=== PATIENT | male | born 1960 | race Caucasian/White ===

== ENCOUNTER 2016-11-16 10:15 | Emergency (ER) | payer OTHER ==
[~2016-11-16 10:15] MED LIST: ACID REDUCER150 MG PO; AMITRIPTYLINE H25 MG PO; ATIVAN0.5 MG PO; CATAPRES0.1 MG PO; EFFEXOR XR150 MG PO; LISINOPRIL10 MG PO; LOPRESSOR50 MG PO; PRENATABS RX PO; SIMVASTATIN40 MG PO; ULTRAM EQIVALEN50 MG PO
--- NOTE | 2016-11-16 12:50 | ED ORDER SUMMARY ---
..... Patient: PRICILA AYERS OrderSheet [facility] VisitID: [id number] [place] [address] 56y, M Registration Date/Time: 11/16/2016 ORDER SHEET Weight: 102.0 kg (stated) Allergies: No Known Drug Allergy GENERAL ORDERS: Irrigate Wounds (11/16/2016 Joe Browning) (Cancelled: Duplicate Order11:30 Joe Browning) Wound Set-up: (11/16/2016 Joe Browning) (Cancelled: Duplicate Order11:30 Joe Browning) Wound Irrigation (11/16/2016 Joe Browning) (Cancelled: Duplicate Order11:29 Joe Browning) I&D Tray (11/16/2016 Joe Browning) (11:39 Florinda) MEDICATION ORDERS: Ziecslb-Lrgsqv-Sgixt Pertussis IM 0.5 mL (NOW, per protocol) (11/16/2016 Joe Browning) (Ack 11:51 DDean R.N.) (12:08 DDean R.N.) Lidocaine Injection Buffered 1% (place at bedside, with syringes & needles) (11/16/2016 Joe Browning) (Ack 11:51 DDean R.N.) (Cancelled: Other11:57 DDean R.N.) Keflex PO 500 mg (NOW) (12:11/16/2016 Joe Browning) (Ack 12:11 DDean R.N.) (12:20 DDean R.N.) Bactrim DS PO (Tablet 800-160 mg) 1 tab (NOW) (12:11/16/2016 Joe Browning) (Ack 12:11 DDean R.N.) (12:20 DDean R.N.) Percocet PO 5/325 mg (HIGH ALERT MEDICATION, NOW) (12:11/16/2016 Joe Browning) (Ack 12:11 DDean R.N.) (12:20 DDean R.N.) IV FLUIDS: ORDER SHEET NOTES: [Electronically signed by Marilyn Monteiro R.N. (14:42 11/16/2016)] [Electronically signed by Joe Francis Dr. (15:00 11/18/2016)] [Electronically locked/signed by Marilyn Monteiro R.N. (14:42 11/16/2016)]
--- NOTE | 2016-11-16 12:50 | ED CLINICAL REPORT ---
Clinical Report - Physicians/Mid Levels [facility] [address] [place] [address] 11/16/2016 10:16 Patient: PRICILA AYERS Time Seen: 1116. Arrived- By private vehicle. Historian- patient. HISTORY OF PRESENT ILLNESS Chief Complaint: BOIL. This started past several days and is still present and worsening. It was gradual in onset and has been constant but is not gone now. It is described as painful. It has been located on the right thigh. No cause has been identified. No recent medication, insect bite or food exposure. Was not recently exposed to poison eliel or poison oak. Similar symptoms previously: (a few). Recent medical care: Not recently seen/assessed. REVIEW OF SYSTEMS No fever or joint pain. All systems otherwise negative, except as recorded above. PAST HISTORY See nurses notes. Tetanus immunization status is unknown. Medications: Motrin 400mg taken at 2200 . Percocet Oral 5/325 mg, 4x a day as needed, last dose 0630. Ranitidine HCl Oral 150 mg, 2x a day. Simvastatin Oral 40 mg, daily. Amitriptyline HCl Oral 50 mg, at bedtime as needed. Lisinopril Oral 10 mg, daily. Metoprolol Succinate ER Oral 200 mg, 1/2 tablet twice a day. Allergies: No Known Drug Allergy. SOCIAL HISTORY Smoker- current status unknown. Occasional alcohol use. No drug use. No recent travel. Is a local resident. ADDITIONAL NOTES The nursing notes have been reviewed. PHYSICAL EXAM Vital Signs: 11/16/2016 10:20 BP: 140/95. HR: 114. RR: 20. O2 saturation: 97%. Temp: 98.7 F. Pain level now: 8/10. Blood pressure normal. Oxygen saturation normal. Appearance: Alert. Oriented X3. No acute distress. (non toxic). Eyes: Pupils equal, round and reactive to light. Conjunctivae and eyelids normal. ENT: Ears normal. Nose normal. Pharynx normal. CVS: Normal heart rate and rhythm. Heart sounds normal. Respiratory: No respiratory distress. Breath sounds normal. Chest nontender. Abdomen: Nontender. No organomegaly. Skin: Skin warm and dry. Normal skin color. No rash. Normal skin turgor. (except for abscess to the right anterior thigh. induration is 6 cm at largest diameter. fluctuanct center at area of reported prior I&D scar. cellulitis measuers 12 cm at area of greatest diameter. no crepitus. no denis abnormalities. no increased pain with ROM of the leg.). Extremities: Normal external inspection. Extremities nontender. PROGRESS AND PROCEDURES Incision & Drainage of Abscess: The abscess is located (Right thigh). The risks of the procedure, benefits and alternatives were explained. IV established. O2 administered. Placed on pulse oximeter and design engineering intern. Anesthesia provided using 1% lidocaine with epi. Skin cleansed with Betadine. The abscess was incised with a #11 surgical blade. A moderate amount of pus was drained. Cavity was packed with gauze. A dressing was applied. Estimated blood loss: 5 mL. ( loculations broken up with curved forceps. patient tolerated procedure well. no complications.). Course of Care: the patient is a pleasant 56-year-old male with past medical history significant for abscess and MRSA infection presenting for abscess to the thigh. Patient has an area of cellulitis as well. No crepitus. No signs of deeper infection. No systemic involvement. No signs of sepsis. Do not feel imaging or laboratory studies are warranted at this time. Patient appears nontoxic and is in no acute distress. Informed verbal consent obtained for abscess incision and drainage. Patient is agreeable to the treatment plan. patient's workup was remarkable for a significant amount of purulent material drained from the wound. It was packed. No competition's. Please see procedure note for further details. Patient reported improvement with her symptoms after the incision and drainage. Patient continues to be nontoxic and in no acute distress. Did not fill patient is being admitted or require further emergency department workup/evaluation. Patient is a good outpatient candidate. First also in the proximal provided here as well as prescription for outpatientantibiotic treatment. Discussed the patient workup here in the emergency department home care, follow-up, and return precautions. All questions have been answered. The patient expressed understanding of these instructions and was agreeable to them. Disposition: Discharged. Condition: good. CLINICAL IMPRESSION 11/16/2016 10:20 BP: 140/95. HR: 114. RR: 20. O2 saturation: 97%. Temp: 98.7 F. Pain level now: 8/10. Hypertensive. Oxygen saturation normal. Essential hypertension. Cellulitis (acute right anterior thigh). Single deep abscess with incision and drainage (right anterior thigh). INSTRUCTIONS Warnings: GENERAL WARNINGS: Return or contact your physician immediately if your condition worsens or changes unexpectedly, if not improving as expected, or if other problems arise. Specifically return if pain, vomiting, bleeding, breathing difficulty or fever. Your Current Medications: CONTINUE TAKING THE FOLLOWING MEDICATIONS: Amitriptyline HCl Oral : 50 mg at bedtime, prn. Lisinopril Oral : 10 mg daily. Metoprolol Succinate ER Oral : 200 mg 1/2 tablet twice a day. Motrin 400mg taken at 2200 *. Percocet Oral : 5/325 mg 4x a day, Last: 0630, prn. Ranitidine HCl Oral : 150 mg 2x a day. Simvastatin Oral : 40 mg daily. Prescription Medications: Bactrim DS 800 mg / 160 mg: take 1 tablet orally every 12 hours for 10 days. No refill. Substitution is permissible. (disp 20 tabs) Keflex 500 mg: take 1 capsule orally every 8 hours for 10 days. No refill. Substitution is permissible. (Disp 30 caps) Percocet 5 mg/325 mg: take 1 tablet orally every 6 hours as needed for pain. Dispense twelve (12). No refill. Substitution is permissible. Follow-up: Return to the emergency department as needed. Follow up with your doctor. Reason for referral: recheck wound in 24 - 48 hours. Summary of care provided to patient via paper. Screening today revealed the patient's blood pressure to be in the normal range. The patient should follow up with a primary care provider for blood pressure management. Understanding of the discharge instructions verbalized by patient. (Electronically signed by Joe Francis Dr. 11/18/2016 15:00)
--- NOTE | 2016-11-16 12:50 | ED NURSING NOTES ---
Clinical Report - Nurses [facility] [address] [place] [address] 11/16/2016 10:16 Patient: PRICILA AYERS TRIAGE Triage time 1020. Acuity: LEVEL 3. Chief Complaint: BOIL and TENDER AREA. --10:32 Marilyn Monteiro R.N. 10:20 11/16/16. BP: 140/95. HR: 114. RR: 20. O2 saturation: 97% on room air. Temp: 98.7 F. Pain level now: 03/26. --10:32 Marilyn Monteiro R.N. Weight: 102 kg stated. Height/Length: 72 inches Per Patient. BMI: 30.5. --10:27 Marilyn Monteiro R.N. Medications Amitriptyline HCl Oral 50 mg, at bedtime as needed. Lisinopril Oral 10 mg, daily. Metoprolol Succinate ER Oral 200 mg, 1/2 tablet twice a day. --10:29 Marilyn Monteiro R.N. Ranitidine HCl Oral 150 mg, 2x a day. Simvastatin Oral 40 mg, daily. --10:29 Marilyn Monteiro R.N. Percocet Oral 5/325 mg, 4x a day as needed, last dose 0630. --10:29 Marilyn Monteiro R.N. Motrin 400mg taken at 2200 . --10:30 Marilyn Monteiro R.N. Allergies No Known Drug Allergy. --10:29 Marilyn Monteiro R.N. History Arrived by private vehicle. Historian: patient. Accompanied by (pt states he was dropped off). Primary physician (alex). Reported as (right thigh). Onset. (4 days). SOCIAL HX: Heavy tobacco smoker (cigarette)- less than 1 pack per day. Occasional alcohol use. No drug use. --10:32 Marilyn Monteiro R.N. PROBLEMS: Chronic back pain . Abcess. Hyperlipidemia. Hypertension. Abdominal Pain. Peptic Ulcer Disease. Hernia. Bowel Obstruction. Gastritis. Hypokalemia. Alcohol Withdrawal. Pancreatitis. --10:31 Marilyn Monteiro R.N. ADDITIONAL SURGERIES: Ankle surgery. Endoscopy. Knee Surgery. --10:31 Marilyn Monteiro R.N. Interventions ID band on patient. To treatment room. --10:32 Marilyn Monteiro R.N. PHYSICAL ASSESSMENT 10:20. Ambulatory to room. Patient gowned. GENERAL / NEURO / PSYCH: Alert. Appears in pain. Oriented X 4. HEENT: Mucous membranes are pink. RESPIRATORY: Respirations not labored. CVS: Capillary refill less than 2 seconds. SKIN: Skin tenderness present. Swelling present. Increased warmth present. Erythema present. --10:33 Marilyn Monteiro R.N. NURSING PROGRESS NOTES 10:20. Patient gowned. Head of bed elevated. Reassurance given. Patient identifiers checked. Call light placed in reach. Side rails up. Bed placed in lowest position. Patient ready for evaluation- chart flagged. --10:33 Marilyn Monteiro R.N. 10:25. ( pt ambulated to bathroom, UA obtained and sent to lab). --10:34 Marilyn Monteiro R.N. 11:50 11/16/2016 EIUHIPG-VKMWRI-VRZON PERTUSSIS IM 0.5 mL given. (Lot#: [id number] , expiration date: 05/24/2018, Laundry [employer] Counter Clerk: [employer]). Given in the left deltoid. Vaccine information statement provided to the patient. --12:08 Marilyn Monteiro R.N. 11:30. ( Pt resting quietly, watching t.v. in no acute distress.). --12:12 Marilyn Monteiro R.N. 12:15 11/16/2016 Keflex (Cephalexin) PO Capsules 500 mg given. --12:20 Marilyn Monteiro R.N. 12:15 11/16/2016 Bactrim DS (Sulfamethoxazole-TMP DS) PO Tablets 1 tab given. Allergies verified and confirmed 5 rights. --12:20 Marilyn Monteiro R.N. 12:15 11/16/2016 Percocet (Oxycodone-Acetaminophen) PO 5/325 mg Tablets 1 tab given. Allergies verified, confirmed 5 rights and sedative warning given to the patient. --12:20 Marilyn Monteiro R.N. 12:25. I & D: Incision and Drainage of abscess performed by ED physician. The abscess is located on the right thigh. Preparation: Incision and Drainage tray set up with 1% lidocaine. Procedure: skin cleansed with Betadine; a moderate amount of pus was drained. Cavity was irrigated with saline and packed with gauze. Post-procedure: he was stable, no complications, bleeding controlled and dressing intact. Total time of assist / procedure: 15 minutes. --14:38 Marilyn Monteiro R.N. 12:50. Applied clean bulky dressing consisting of 4x4 gauze. Secured with tape and amada (done by surgical tech). --14:39 Marilyn Monteiro R.N. 12:55. ( Pt standing by door, fully dressed, asking to go home.). --14:40 Marilyn Monteiro R.N. DISPOSITION / DISCHARGE 12:55. Condition at departure: improved and stable. No learning barriers present. Discharge instructions provided and reviewed with the patient. Reviewed medication(s) (bactrim, keflex, percocet, motrin). Patient verbalized understanding. Written instructions provided in Italian. The patient was discharged home and accompanied by mortician supplies sales representative. He left the Emergency Department ambulatory and via private vehicle. Pillar Worker driving. --14:41 Marilny Monteiro R.N. 12:55 11/16/16. BP: 138/83. HR: 110. RR: 18. O2 saturation: 96% on room air. Temp: deferred. Pain level now: 03/26. --14:41 Marilyn Monteiro R.N. Locked/Released at 11/16/2016 14:42 by Marilyn Monteiro R.N.
--- NOTE | 2016-11-16 12:50 | ED ORDER SUMMARY ---
..... Patient: PRICILA AYERS OrderSheet [facility] VisitID: [id number] [place] [address] 56y, M Registration Date/Time: 11/16/2016 ORDER SHEET Weight: 102.0 kg (stated) Allergies: No Known Drug Allergy GENERAL ORDERS: Irrigate Wounds (11/16/2016 Joe Browning) (Cancelled: Duplicate Order11:30 Joe Browning) Wound Set-up: (11/16/2016 Joe Browning) (Cancelled: Duplicate Order11:30 Joe Browning) Wound Irrigation (11/16/2016 Joe Browning) (Cancelled: Duplicate Order11:29 Joe Browning) I&D Tray (11/16/2016 Joe Browning) (11:39 Florinda) MEDICATION ORDERS: Rgqewqg-Duvnmz-Jnlpe Pertussis IM 0.5 mL (NOW, per protocol) (11/16/2016 Joe Browning) (Ack 11:51 DDean R.N.) (12:08 DDean R.N.) Lidocaine Injection Buffered 1% (place at bedside, with syringes & needles) (11/16/2016 Joe Browning) (Ack 11:51 DDean R.N.) (Cancelled: Other11:57 DDean R.N.) Keflex PO 500 mg (NOW) (12:11/16/2016 Joe Browning) (Ack 12:11 DDean R.N.) (12:20 DDean R.N.) Bactrim DS PO (Tablet 800-160 mg) 1 tab (NOW) (12:11/16/2016 Joe Browning) (Ack 12:11 DDean R.N.) (12:20 DDean R.N.) Percocet PO 5/325 mg (HIGH ALERT MEDICATION, NOW) (12:11/16/2016 Joe Browning) (Ack 12:11 DDean R.N.) (12:20 DDean R.N.) IV FLUIDS: ORDER SHEET NOTES: [Electronically signed by Marilyn Monteiro R.N. (14:42 11/16/2016)] [Electronically signed by Joe Francis Dr. (15:00 11/18/2016)] [Electronically locked/signed by Marilyn Monteiro R.N. (14:42 11/16/2016)]
--- NOTE | 2016-11-16 12:50 | ED NURSING NOTES ---
Clinical Report - Nurses [facility] [address] [place] [address] 11/16/2016 10:16 Patient: PRICILA AYERS TRIAGE Triage time 1020. Acuity: LEVEL 3. Chief Complaint: BOIL and TENDER AREA. --10:32 Marilyn Monteiro R.N. 10:20 11/16/16. BP: 140/95. HR: 114. RR: 20. O2 saturation: 97% on room air. Temp: 98.7 F. Pain level now: 03/26. --10:32 Marilyn Monteiro R.N. Weight: 102 kg stated. Height/Length: 72 inches Per Patient. BMI: 30.5. --10:27 Marilyn Monteiro R.N. Medications Amitriptyline HCl Oral 50 mg, at bedtime as needed. Lisinopril Oral 10 mg, daily. Metoprolol Succinate ER Oral 200 mg, 1/2 tablet twice a day. --10:29 Marilyn Monteiro R.N. Ranitidine HCl Oral 150 mg, 2x a day. Simvastatin Oral 40 mg, daily. --10:29 Marilyn Monteiro R.N. Percocet Oral 5/325 mg, 4x a day as needed, last dose 0630. --10:29 Marilyn Monteiro R.N. Motrin 400mg taken at 2200 . --10:30 Marilyn Monteiro R.N. Allergies No Known Drug Allergy. --10:29 Marilyn Monteiro R.N. History Arrived by private vehicle. Historian: patient. Accompanied by (pt states he was dropped off). Primary physician (alex). Reported as (right thigh). Onset. (4 days). SOCIAL HX: Heavy tobacco smoker (cigarette)- less than 1 pack per day. Occasional alcohol use. No drug use. --10:32 Marilyn Monteiro R.N. PROBLEMS: Chronic back pain . Abcess. Hyperlipidemia. Hypertension. Abdominal Pain. Peptic Ulcer Disease. Hernia. Bowel Obstruction. Gastritis. Hypokalemia. Alcohol Withdrawal. Pancreatitis. --10:31 Marilyn Monteiro R.N. ADDITIONAL SURGERIES: Ankle surgery. Endoscopy. Knee Surgery. --10:31 Marilyn Monteiro R.N. Interventions ID band on patient. To treatment room. --10:32 Marilyn Monteiro R.N. PHYSICAL ASSESSMENT 10:20. Ambulatory to room. Patient gowned. GENERAL / NEURO / PSYCH: Alert. Appears in pain. Oriented X 4. HEENT: Mucous membranes are pink. RESPIRATORY: Respirations not labored. CVS: Capillary refill less than 2 seconds. SKIN: Skin tenderness present. Swelling present. Increased warmth present. Erythema present. --10:33 Marilyn Monteiro R.N. NURSING PROGRESS NOTES 10:20. Patient gowned. Head of bed elevated. Reassurance given. Patient identifiers checked. Call light placed in reach. Side rails up. Bed placed in lowest position. Patient ready for evaluation- chart flagged. --10:33 Marilyn Monteiro R.N. 10:25. ( pt ambulated to bathroom, UA obtained and sent to lab). --10:34 Marilyn Monteiro R.N. 11:50 11/16/2016 PFMXZLH-ZHXPDZ-WFJVV PERTUSSIS IM 0.5 mL given. (Lot#: [id number] , expiration date: 05/24/2018, Scientific Database Curator: [employer]). Given in the left deltoid. Vaccine information statement provided to the patient. --12:08 Marilyn Monteiro R.N. 11:30. ( Pt resting quietly, watching t.v. in no acute distress.). --12:12 Marilyn Monteiro R.N. 12:15 11/16/2016 Keflex (Cephalexin) PO Capsules 500 mg given. --12:20 Marilyn Monteiro R.N. 12:15 11/16/2016 Bactrim DS (Sulfamethoxazole-TMP DS) PO Tablets 1 tab given. Allergies verified and confirmed 5 rights. --12:20 Marilyn Monteiro R.N. 12:15 11/16/2016 Percocet (Oxycodone-Acetaminophen) PO 5/325 mg Tablets 1 tab given. Allergies verified, confirmed 5 rights and sedative warning given to the patient. --12:20 Marilyn Monteiro R.N. 12:25. I & D: Incision and Drainage of abscess performed by ED physician. The abscess is located on the right thigh. Preparation: Incision and Drainage tray set up with 1% lidocaine. Procedure: skin cleansed with Betadine; a moderate amount of pus was drained. Cavity was irrigated with saline and packed with gauze. Post-procedure: he was stable, no complications, bleeding controlled and dressing intact. Total time of assist / procedure: 15 minutes. --14:38 Marilyn Monteiro R.N. 12:50. Applied clean bulky dressing consisting of 4x4 gauze. Secured with tape and amada (done by orthophotography technician). --14:39 Marilyn Monteiro R.N. 12:55. ( Pt standing by door, fully dressed, asking to go home.). --14:40 Marilyn Monteiro R.N. DISPOSITION / DISCHARGE 12:55. Condition at departure: improved and stable. No learning barriers present. Discharge instructions provided and reviewed with the patient. Reviewed medication(s) (bactrim, keflex, percocet, motrin). Patient verbalized understanding. Written instructions provided in Swazi. The patient was discharged home and accompanied by packing checker. He left the Emergency Department ambulatory and via private vehicle. Restaurant Mgr driving. --14:41 Marilyn Monteiro R.N. 12:55 11/16/16. BP: 138/83. HR: 110. RR: 18. O2 saturation: 96% on room air. Temp: deferred. Pain level now: 03/26. --14:41 Marilyn Monteiro R.N. Locked/Released at 11/16/2016 14:42 by Marilyn Monteiro R.N.
--- NOTE | 2016-11-18 15:00 | ED MAR SUMMARY ---
..... Medication Administration Record [facility] [address] [place] [place] [address] Patient: PRICILA AYERS Visit ID: [id number] 56y, M Weight: 102.0 kg Height/Length: 72 in BMI: 30.5 ALLERGIES: No Known Drug Allergy Given 11:50 11/16/2016 Marilyn Monteiro R.N. Medication Administered: SUVNHWJ-NSANGF-LMZVX PERTUSSIS [IM], Dose: 0.5 mL IM. Medication Ordered: Ffklagl-Ykdppg-Iiwga Pertussis IM 0.5 mL (NOW, per protocol). Given 12:15 11/16/2016 Mrailyn Monteiro R.N. Medication Administered: KEFLEX [PO] (CEPHALEXIN), Dose: 500 mg Capsules PO. Medication Ordered: Keflex PO 500 mg (NOW). Given 12:11/16/2016 Marilyn Monteiro R.N. Medication Administered: BACTRIM DS [PO] (SULFAMETHOXAZOLE-TMP DS), Dose: 1 tab Tablets PO. Medication Ordered: Bactrim DS PO (Tablet 800-160 mg) 1 tab (NOW). Given 12:15 11/16/2016 Marilyn Monteiro R.N. Medication Administered: PERCOCET [PO] (OXYCODONE-ACETAMINOPHEN), Dose: 1 tab 5/325 mg Tablets PO. Medication Ordered: Percocet PO 5/325 mg (HIGH ALERT MEDICATION, NOW).
--- NOTE | 2016-11-18 15:00 | ED MED RECONCILIATION SUMMARY ---
Patient: PRICILA AYERS Medication Reconciliation Report [facility] VisitID: [id number] [place] [address] 56y, M Registration Date/Time: 11/16/2016 Weight: 102.0 kg Height/Length: 72 in. BMI: 30.5 ALLERGIES: No Known Drug Allergy The patient's Home Medications are listed below: CONTINUE TAKING THE FOLLOWING MEDICATIONS: Amitriptyline HCl Oral 50 mg, at bedtime Lisinopril Oral 10 mg, daily Metoprolol Succinate ER Oral 200 mg, 1/2 tablet twice a day Motrin 400mg taken at 2200 Percocet Oral 5/325 mg, 4x a day, last dose: 629 Ranitidine HCl Oral 150 mg, 2x a day Simvastatin Oral 40 mg, daily The source(s) of the original Home Medication information: Not obtained. The following Medications were given to the patient in the Emergency Department: [id number]-[id number]-[id number] PERTUSSIS [IM] IM 0.5 mL, administered: 11/16/2016 11:50:00 AM Keflex [PO] PO 500 mg, administered: 11/16/2016 12:15:00 PM Bactrim DS [PO] PO 1 tab, administered: 11/16/2016 12:15:00 PM Percocet [PO] PO 1 tab, administered: 11/16/2016 12:15:00 PM The following Medications were prescribed to the patient: Bactrim DS 800 mg / 160 mg: take 1 tablet orally every 12 hours for 10 days. No refill. Substitution is permissible.(disp 20 tabs) -- Joe Francis Dr. Keflex 500 mg: take 1 capsule orally every 8 hours for 10 days. No refill. Substitution is permissible.(Disp 30 caps) -- Joe Francis Dr. Percocet 5 mg/325 mg: take 1 tablet orally every 6 hours as needed for pain. Dispense twelve (12). No refill. Substitution is permissible. -- Joe Francis Dr.
--- NOTE | 2016-11-18 15:00 | ED DISCHARGE INSTRUCTIONS ---
Patient: PRICILA AYERS General Instructions [facility] VisitID: [id number] [place] [address] 56y, M Registration Date/Time: 11/16/2016 11/16/2016 10:20 BP: 140/95. HR: 114. RR: 20. O2 saturation: 97%. Temp: 98.7 F. Pain level now: 8/10. Hypertensive. Oxygen saturation normal. Essential hypertension. Cellulitis (acute right anterior thigh). Single deep abscess with incision and drainage (right anterior thigh). INSTRUCTIONS Warnings: GENERAL WARNINGS: Return or contact your physician immediately if your condition worsens or changes unexpectedly, if not improving as expected, or if other problems arise. Specifically return if pain, vomiting, bleeding, breathing difficulty or fever. Your Current Medications: CONTINUE TAKING THE FOLLOWING MEDICATIONS: Amitriptyline HCl Oral : 50 mg at bedtime, prn. Lisinopril Oral : 10 mg daily. Metoprolol Succinate ER Oral : 200 mg 1/2 tablet twice a day. Motrin 400mg taken at 2200 *. Percocet Oral : 5/325 mg 4x a day, Last: 0630, prn. Ranitidine HCl Oral : 150 mg 2x a day. Simvastatin Oral : 40 mg daily. Prescription Medications: Bactrim DS 800 mg / 160 mg: take 1 tablet orally every 12 hours for 10 days. No refill. Substitution is permissible. (disp 20 tabs) Keflex 500 mg: take 1 capsule orally every 8 hours for 10 days. No refill. Substitution is permissible. (Disp 30 caps) Percocet 5 mg/325 mg: take 1 tablet orally every 6 hours as needed for pain. Dispense twelve (12). No refill. Substitution is permissible. Follow-up: Return to the emergency department as needed. Follow up with your doctor. Reason for referral: recheck wound in 24 - 48 hours. Summary of care provided to patient via paper. Screening today revealed the patient's blood pressure to be in the normal range. The patient should follow up with a primary care provider for blood pressure management. Understanding of the discharge instructions verbalized by patient. ADDITIONAL INFORMATION Cellulitis You have an infection of the skin known as cellulitis. This usually starts with a scrape, cut, insect bite, blister or other opening in the skin which becomes infected. This is a serious condition. It must be watched closely to be sure the infection is not spreading. With antibiotic treatment, the size of the red area will gradually shrink in size until the skin returns to normal. This will take 7-10 days. The red area should never increase in size once the antibiotic medicine has been started. Occasionally, an infection will be resistant to one antibiotic and another one will have to be used. Home Care: 1) Limit the use of the affected part, since excess movement can cause the infection to spread. 2) If the infection is on your leg, walk as little as possible during the first few days of the treatment. Keep your leg elevated while sitting. This will reduce swelling. 3) Take all of the antibiotic medicine exactly as directed until it is gone. Be careful not to miss any doses, especially during the first seven days. Follow Up with your doctor or this facility as directed. Check the infected area daily for the warning signs listed below. Get Prompt Medical Attention if any of the following occur: -- Spreading area of redness -- Increasing swelling or pain -- Appearance of pus or drainage -- Fever over 100.4 F (38.0 C) oral, or over 101.4 F (38.6 C) rectal, after two days on antibiotics Abscess [Incision & Drainage] An abscess (sometimes called a boil) occurs when bacteria get trapped under the skin and begin to grow. Pus forms inside the abscess as the body responds to the bacteria. An abscess can occur with an insect bite, ingrown hair, blocked oil gland, pimple, cyst, or puncture wound. Treatment of your abscess has required an incision to drain the pus. If the abscess pocket was large, a gauze packing may have been inserted. This will need to be removed and possibly replaced on your next visit. Antibiotics are not required in the treatment of a simple abscess, unless the infection is spreading into the skin around the wound (known as cellulitis). Healing of the wound will take about one to two weeks depending on the size of the abscess. Healthy tissue will grow from the bottom and sides of the opening until it seals over. Home Care: The wound may drain for the first two days. Cover the wound with a clean dry dressing. If the dressing becomes soaked with blood or pus, change it. If a gauze packing was placed inside the abscess cavity, you may be advised to remove it yourself. You may do this in the shower. Once the packing is removed, you should wash the area in the shower or bath 3 to 4 times a day, until the skin opening has closed. If you were prescribed antibiotics, take them as directed until they are all gone. You may use acetaminophen (Tylenol) or ibuprofen (Motrin, Advil) to control pain, unless another pain medicine was prescribed. [ NOTE: If you have liver disease or ever had a stomach ulcer, talk with your doctor before using these medicines.] Follow Up with your doctor as advised by our staff. If a gauze packing was inserted in your wound, it should be removed in 1-2 days. Check your wound every day for the signs of worsening infection listed below. Get Prompt Medical Attention if any of the following occur: Increasing redness or swelling Red streaks in the skin leading away from the wound Increasing local pain or swelling Continued pus draining from the wound two days after treatment Fever of 100.4F (38C) or higher, or as directed by your healthcare provider High Blood Pressure --Established High Blood Pressure (Hypertension) is a chronic disease. The cause is unknown in most cases. It can usually be controlled with lifestyle changes and/or medicines. Symptoms of high blood pressure may include headache, dizziness, visual changes, chest pain and shortness of breath. Sometimes it causes no symptoms at all. However, even if there are no symptoms, untreated high blood pressure increases the risk of heart attack, also known as acute myocardial infarction, or AMI, and stroke. It is a serious health risk and should not be ignored. A normal blood pressure is 120/80 or less. The first (top) number is the "systolic" pressure. The second (bottom) number is the "diastolic" pressure. Hypertension exists when either the top number is 140 or higher, OR the bottom number is 90 or higher on repeated measurements. Home Care: All patients with high blood pressure should do the following to lower their pressure. If you are on medicines, then these methods may reduce or eliminate your need for medicines in the future. Begin a weight loss program if you are overweight. Reduce your salt intake. Avoid high salt foods (olives, pickles, smoked meats, salted potato chips, etc.). Do not add salt to your food at the table. Use only small amounts of salt when cooking. Begin an exercise program. Discuss with your doctor what type of exercise program would be best for you. It doesn't have to be difficult. Even brisk walking for 20 minutes three times a week is a good form of exercise. Avoid medicines which contain heart stimulants. This includes many cold and sinus decongestant pills and sprays as well as diet pills. Check the warnings about hypertension on the label. Stimulants such as amphetamine or cocaine could be lethal for someone with hypertension. Never take these. Limit your caffeine intake or switch to caffeine-free products. Stop smoking. If you are a long-time smoker, this can be hard. Enroll in a stop-smoking program to improve your chance of success. Learning how to handle stress better is an important part of any program to lower blood pressure. Learn about relaxation methods such as meditation, yoga or biofeedback. If medicines were prescribed, take them exactly as directed. Missing doses may cause your blood pressure get out of control. Consider buying an automatic blood pressure machine (available at most pharmacies). Use this to monitor your blood pressure at home and report the results to your doctor. Follow Up: Regular visits to your own physician for blood pressure checks and medicine adjustment is an important part of your care. Make a follow-up appointment as directed by our staff. Get Prompt Medical Attention if any of the following occur: Chest pain or shortness of breath Severe headache Throbbing or rushing sound in the ears Nosebleed Sudden severe abdominal pain Extreme drowsiness, confusion or fainting Dizziness or vertigo (dizziness with spinning sensation) Weakness of an arm or leg or one side of the face Difficulty with speech or vision Sulfamethoxazole, Trimethoprim Oral tablet What is this medicine? SULFAMETHOXAZOLE; TRIMETHOPRIM or SMX-TMP (suhl fuh meth OK belgica zohl; trye METH oh prim) is a combination of a sulfonamide antibiotic and a second antibiotic, trimethoprim. It is used to treat or prevent certain kinds of bacterial infections. It will not work for colds, flu, or other viral infections. How should I use this medicine? Take this medicine by mouth with a full glass of water. Follow the directions on the prescription label. Take your medicine at regular intervals. Do not take it more often than directed. Do not skip doses or stop your medicine early. Talk to your solid waste management engineer regarding the use of this medicine in children. Special care may be needed. This medicine has been used in children as young as 2 months of age. What side effects may I notice from receiving this medicine? Side effects that you should report to your doctor or health health care law specialist as soon as possible: allergic reactions like skin rash or hives, swelling of the face, lips, or tongue breathing problems fever or chills, sore throat irregular heartbeat, chest pain joint or muscle pain pain or difficulty passing urine red pinpoint spots on skin redness, blistering, peeling or loosening of the skin, including inside the mouth unusual bleeding or bruising unusually weak or tired yellowing of the eyes or skin Side effects that usually do not require medical attention (report to your doctor or health health care law specialist if they continue or are bothersome): diarrhea dizziness headache loss of appetite nausea, vomiting nervousness What may interact with this medicine? Do not take this medicine with any of the following medications: aminobenzoate potassium dofetilide metronidazole This medicine may also interact with the following medications: ROBBIE inhibitors like benazepril, enalapril, lisinopril, and ramipril cyclosporine digoxin diuretics indomethacin medicines for diabetes methenamine methotrexate phenytoin potassium supplements pyrimethamine sulfinpyrazone tricyclic antidepressants warfarin What if I miss a dose? If you miss a dose, take it as soon as you can. If it is almost time for your next dose, take only that dose. Do not take double or extra doses. Where should I keep my medicine? Keep out of the reach of children. Store at room temperature between 20 to 25 degrees C (68 to 77 degrees F). Protect from light. Throw away any unused medicine after the expiration date. What should I tell my health care provider before I take this medicine? They need to know if you have any of these conditions: anemia asthma being treated with anticonvulsants if you frequently drink alcohol containing drinks kidney disease liver disease low level of folic acid or [id number] dehydrogenase poor nutrition or malabsorption porphyria severe allergies thyroid disorder an unusual or allergic reaction to sulfamethoxazole, trimethoprim, sulfa drugs, other medicines, foods, dyes, or preservatives or trying to get breast-feeding What should I watch for while using this medicine? Tell your doctor or health health care law specialist if your symptoms do not improve. Drink several glasses of water a day to reduce the risk of kidney problems. Do not treat diarrhea with over the counter products. Contact your doctor if you have diarrhea that lasts more than 2 days or if it is severe and watery. This medicine can make you more sensitive to the sun. Keep out of the sun. If you cannot avoid being in the sun, wear protective clothing and use a sunscreen. Do not use sun lamps or tanning beds/booths. Cephalexin Monohydrate Oral tablet What is this medicine? CEPHALEXIN (sef a LANCE in) is a cephalosporin antibiotic. It is used to treat certain kinds of bacterial infections It will not work for colds, flu, or other viral infections. How should I use this medicine? Take this medicine by mouth with a full glass of water. Follow the directions on the prescription label. This medicine can be taken with or without food. Take your medicine at regular intervals. Do not take your medicine more often than directed. Take all of your medicine as directed even if you think you are better. Do not skip doses or stop your medicine early. Talk to your solid waste management engineer regarding the use of this medicine in children. While this drug may be prescribed for selected conditions, precautions do apply. What side effects may I notice from receiving this medicine? Side effects that you should report to your doctor or health health care law specialist as soon as possible: allergic reactions like skin rash, itching or hives, swelling of the face, lips, or tongue breathing problems pain or trouble passing urine redness, blistering, peeling or loosening of the skin, including inside the mouth severe or watery diarrhea unusually weak or tired yellowing of the eyes, skin Side effects that usually do not require medical attention (report to your doctor or health health care law specialist if they continue or are bothersome): gas or heartburn genital or anal irritation headache joint or muscle pain nausea, vomiting What may interact with this medicine? probenecid some other antibiotics What if I miss a dose? If you miss a dose, take it as soon as you can. If it is almost time for your next dose, take only that dose. Do not take double or extra doses. There should be at least 4 to 6 hours between doses. Where should I keep my medicine? Keep out of the reach of children. Store at room temperature between 59 and 86 degrees F (15 and 30 degrees C). Throw away any unused medicine after the expiration date. What should I tell my health care provider before I take this medicine? They need to know if you have any of these conditions: kidney disease stomach or intestine problems, especially colitis an unusual or allergic reaction to cephalexin, other cephalosporins, penicillins, other antibiotics, medicines, foods, dyes or preservatives or trying to get breast-feeding What should I watch for while using this medicine? Tell your doctor or health health care law specialist if your symptoms do not begin to improve in a few days. Do not treat diarrhea with over the counter products. Contact your doctor if you have diarrhea that lasts more than 2 days or if it is severe and watery. If you have diabetes, you may get a false-positive result for sugar in your urine. Check with your doctor or health health care law specialist. Oxycodone Hydrochloride, Acetaminophen Oral tablet What is this medicine? ACETAMINOPHEN; OXYCODONE (a set a ROWDY yen fen; ox i KOE done) is a pain reliever. It is used to treat mild to moderate pain. How should I use this medicine? Take this medicine by mouth with a full glass of water. Follow the directions on the prescription label. Take your medicine at regular intervals. Do not take your medicine more often than directed. Talk to your solid waste management engineer regarding the use of this medicine in children. Special care may be needed. Patients over 65 years old may have a stronger reaction and need a smaller dose. What side effects may I notice from receiving this medicine? Side effects that you should report to your doctor or health health care law specialist as soon as possible: allergic reactions like skin rash, itching or hives, swelling of the face, lips, or tongue breathing difficulties, wheezing confusion light headedness or fainting spells severe stomach pain yellowing of the skin or the whites of the eyes Side effects that usually do not require medical attention (report to your doctor or health health care law specialist if they continue or are bothersome): dizziness drowsiness nausea vomiting What may interact with this medicine? alcohol antihistamines barbiturates like amobarbital, butalbital, butabarbital, methohexital, pentobarbital, phenobarbital, thiopental, and secobarbital benztropine drugs for bladder problems like solifenacin, trospium, oxybutynin, tolterodine, hyoscyamine, and methscopolamine drugs for breathing problems like ipratropium and tiotropium drugs for certain stomach or intestine problems like propantheline, homatropine methylbromide, glycopyrrolate, atropine, belladonna, and dicyclomine general anesthetics like etomidate, ketamine, nitrous oxide, propofol, desflurane, enflurane, halothane, isoflurane, and sevoflurane medicines for depression, anxiety, or psychotic disturbances medicines for sleep muscle relaxants naltrexone narcotic medicines (opiates) for pain phenothiazines like perphenazine, thioridazine, chlorpromazine, mesoridazine, fluphenazine, prochlorperazine, promazine, and trifluoperazine scopolamine tramadol trihexyphenidyl What if I miss a dose? If you miss a dose, take it as soon as you can. If it is almost time for your next dose, take only that dose. Do not take double or extra doses. Where should I keep my medicine? Keep out of the reach of children. This medicine can be abused. Keep your medicine in a safe place to protect it from theft. Do not share this medicine with anyone. Selling or giving away this medicine is dangerous and against the law. Store at room temperature between 20 and 25 degrees C (68 and 77 degrees F). Keep container tightly closed. Protect from light. This medicine may cause accidental overdose and if it is taken by other adults, children, or pets. Flush any unused medicine down the toilet to reduce the chance of harm. Do not use the medicine after the expiration date. What should I tell my health care provider before I take this medicine? They need to know if you have any of these conditions: brain tumor Crohn's disease, inflammatory bowel disease, or ulcerative colitis drink more than 3 alcohol containing drinks per day drug abuse or addiction head injury heart or circulation problems kidney disease or problems going to the bathroom liver disease lung disease, asthma, or breathing problems an unusual or allergic reaction to acetaminophen, oxycodone, other opioid analgesics, other medicines, foods, dyes, or preservatives or trying to get breast-feeding What should I watch for while using this medicine? Tell your doctor or health health care law specialist if your pain does not go away, if it gets worse, or if you have new or a different type of pain. You may develop tolerance to the medicine. Tolerance means that you will need a higher dose of the medication for pain relief. Tolerance is normal and is expected if you take this medicine for a long time. Do not suddenly stop taking your medicine because you may develop a severe reaction. Your body becomes used to the medicine. This does NOT mean you are addicted. Addiction is a behavior related to getting and using a drug for a non-medical reason. If you have pain, you have a medical reason to take pain medicine. Your doctor will tell you how much medicine to take. If your doctor wants you to stop the medicine, the dose will be slowly lowered over time to avoid any side effects. You may get drowsy or dizzy. Do not drive, use machinery, or do anything that needs mental alertness until you know how this medicine affects you. Do not stand or sit up quickly, especially if you are an older patient. This reduces the risk of dizzy or fainting spells. Alcohol may interfere with the effect of this medicine. Avoid alcoholic drinks. There are different types of narcotic medicines (opiates) for pain. If you take more than one type at the same time, you may have more side effects. Give your health care provider a list of all medicines you use. Your doctor will tell you how much medicine to take. Do not take more medicine than directed. Call emergency for help if you have problems breathing. The medicine will cause constipation. Try to have a bowel movement at least every 2 to 3 days. If you do not have a bowel movement for 3 days, call your doctor or health health care law specialist. Do not take Tylenol (acetaminophen) or medicines that have acetaminophen with this medicine. Too much acetaminophen can be very dangerous. Many nonprescription medicines contain acetaminophen. Always read the labels carefully to avoid taking more acetaminophen. You have been given the following additional information: Cellulitis Abscess, Incision And Drainage Hypertension, Established Sulfamethoxazole, Trimethoprim Oral tablet Cephalexin Monohydrate Oral tablet Oxycodone Hydrochloride, Acetaminophen Oral tablet (Electronically signed by Joe Francis Dr. 11/18/2016 15:00)
--- NOTE | 2016-11-18 15:00 | ED MAR SUMMARY ---
..... Medication Administration Record [facility] [address] [place] [address] Patient: PRICILA AYERS Visit ID: [id number] 56y, M Weight: 102.0 kg Height/Length: 72 in BMI: 30.5 ALLERGIES: No Known Drug Allergy Given 11:50 11/16/2016 Marilyn Monteiro R.N. Medication Administered: [id number] PERTUSSIS [IM], Dose: 0.5 mL IM. Medication Ordered: Tjndfzu-Iddwyz-Qmapx Pertussis IM 0.5 mL (NOW, per protocol). Given 12:15 11/16/2016 Marilyn Monteiro R.N. Medication Administered: KEFLEX [PO] (CEPHALEXIN), Dose: 500 mg Capsules PO. Medication Ordered: Keflex PO 500 mg (NOW). Given 12:11/16/2016 Marilyn Monteiro R.N. Medication Administered: BACTRIM DS [PO] (SULFAMETHOXAZOLE-TMP DS), Dose: 1 tab Tablets PO. Medication Ordered: Bactrim DS PO (Tablet 800-160 mg) 1 tab (NOW). Given 12:15 11/16/2016 Marilyn Monteiro R.N. Medication Administered: PERCOCET [PO] (OXYCODONE-ACETAMINOPHEN), Dose: 1 tab 5/325 mg Tablets PO. Medication Ordered: Percocet PO 5/325 mg (HIGH ALERT MEDICATION, NOW).
--- NOTE | 2016-11-18 15:00 | ED MED RECONCILIATION SUMMARY ---
Patient: PRICILA AYERS Medication Reconciliation Report [facility] VisitID: [id number] [place] [address] 56y, M Registration Date/Time: 11/16/2016 Weight: 102.0 kg Height/Length: 72 in. BMI: 30.5 ALLERGIES: No Known Drug Allergy The patient's Home Medications are listed below: CONTINUE TAKING THE FOLLOWING MEDICATIONS: Amitriptyline HCl Oral 50 mg, at bedtime Lisinopril Oral 10 mg, daily Metoprolol Succinate ER Oral 200 mg, 1/2 tablet twice a day Motrin 400mg taken at 2200 Percocet Oral 5/325 mg, 4x a day, last dose: 629 Ranitidine HCl Oral 150 mg, 2x a day Simvastatin Oral 40 mg, daily The source(s) of the original Home Medication information: Not obtained. The following Medications were given to the patient in the Emergency Department: [id number] PERTUSSIS [IM] IM 0.5 mL, administered: 11/16/2016 11:50:00 AM Keflex [PO] PO 500 mg, administered: 11/16/2016 12:15:00 PM Bactrim DS [PO] PO 1 tab, administered: 11/16/2016 12:15:00 PM Percocet [PO] PO 1 tab, administered: 11/16/2016 12:15:00 PM The following Medications were prescribed to the patient: Bactrim DS 800 mg / 160 mg: take 1 tablet orally every 12 hours for 10 days. No refill. Substitution is permissible.(disp 20 tabs) -- Joe Francis Dr. Keflex 500 mg: take 1 capsule orally every 8 hours for 10 days. No refill. Substitution is permissible.(Disp 30 caps) -- Joe Francis Dr. Percocet 5 mg/325 mg: take 1 tablet orally every 6 hours as needed for pain. Dispense twelve (12). No refill. Substitution is permissible. -- Joe Francis Dr.
== END 2016-11-16 12:55 | disposition home or self-care (01) ==
LOC: ED SRH 10:15
DX: L03.115 Cellulitis of right lower limb (principal); L02.415 Cutaneous abscess of right lower limb; Z86.14 Personal history of Methicillin resistant Staphylococcus aureus infection; I10 Essential (primary) hypertension; Z23 Encounter for immunization

== ENCOUNTER 2017-03-02 18:37 | Emergency (ER) | payer OTHER ==
--- NOTE | 2017-03-02 20:51 | DIAGNOSTIC IMAGING REPORT ---
PROCEDURE: ABDOMEN/PELVIS WITH CONTRAST CLINICAL INDICATION: ABDOMINAL PAIN right lower quadrant, right flank pain TECHNIQUE: 125 ml of Isovue 300 were injected intravenously and axial images were obtained of the abdomen and pelvis with sagittal and coronal reformations. COMPARISON: 09/09/2015 FINDINGS: ABDOMEN: Mild bibasilar atelectasis. Tiny left adrenal low density lesion to small to accurately characterize, likely an adenoma. Bilateral renal cortical scarring. Normal sized heart. No hiatal hernia. The liver, gallbladder, right adrenal, pancreas and spleen are normal. The abdominal aorta is normal in its course and caliber. Mild calcific atherosclerosis. There are no suspicious calcifications, retroperitoneal adenopathy or masses. The stomach, upper bowel loops, and mesentery are normal. Intact anterior abdominal wall. Circumferential wall thickening, scattered diverticula, and moderate pericolonic inflammation without extraluminal gas involving a segment approximately of 5.5 cm long in the ascending colon just prior to the hepatic flexure. The appendix and cecum are normal. PELVIS: The pelvic small bowel loops are normal. Decreased amount of stool in the colon and rectum. The prostate gland contains coarse calcification but is normal size. There are diverticula in the sigmoid colon. The seminal vesicles, urinary bladder, and pelvic vessels are normal. No adenopathy, free fluid, or pelvic mass. Severe degenerative disc changes at the L5-S1 level. Moderate compression fracture of L1, both chronic findings. IMPRESSION: 1. 5.5 cm long segment of circumferential colonic inflammation of the ascending colon near the hepatic flexure in an area of diverticula. Differential diagnosis includes diverticulitis, infectious colitis, inflammatory neoplasm ( less likely), however colonoscopy should be performed once the acute inflammation has subsided. 2. Tiny, stable left adrenal adenoma. 3. Chronic L1 compression fracture. 4. Discussed with [place] in the emergency room. All CT scans at this facility use dose modulation, iterative reconstruction, and/or weight-based dosing when appropriate to reduce radiation dose to as low as reasonably achievable.
--- NOTE | 2017-03-02 21:15 | ED ORDER SUMMARY ---
..... Patient: PRICILA AYERS OrderSheet [facility] VisitID: [id number] [place] [address] 56y, M Registration Date/Time: 03/02/2017 ORDER SHEET Weight: 99.7 kg (stated) Allergies: No Known Drug Allergy GENERAL ORDERS: CBC w Diff Urgent (18:51 03/02/2017 EKoroleva P.A.-C) (Ack 18:53 LNations ER Tech1) (19:04 IJurca R.N.) CMP Urgent (18:51 03/02/2017 EKoroleva P.A.-C) (Ack 18:53 LNations ER Tech1) (19:04 IJurca R.N.) UA-Culture if indicated Urgent (18:51 03/02/2017 EKoroleva P.A.-C) (Ack 18:53 LNations ER Tech1) (19:04 IJurca R.N.) Lipase Urgent (18:51 03/02/2017 EKoroleva P.A.-C) (Ack 18:53 LNations ER Tech1) (19:04 IJurca R.N.) Ethyl Alcohol Urgent (19:03 03/02/2017 EKoroleva P.A.-C) (19:04 IJurca R.N.) CT Abd/Pel w Cont (No) (N/A) Urgent (19:45 03/02/2017 EKoroleva P.A.-C) (Ack 19:49 Kacie) (20:33 Marley) MEDICATION ORDERS: Phenergan IV 12.5 mg (HIGH ALERT MEDICATION, NOW) (19:36 03/02/2017 EKoroleva P.A.-C) (19:49 CBradburn R.N.) Levaquin PO 750 mg (NOW) (20:51 03/02/2017 EKoroleva P.A.-C) (Ack 21:12 RCollier R.N.) (21:23 RCollier R.N.) Percocet PO 5/325 mg (HIGH ALERT MEDICATION, NOW) (22:30 03/02/2017 EKoroleva P.A.-C) (Ack 22:31 CBradburn R.N.) (22:49 CBradburn R.N.) IV FLUIDS: IV NS : initial bolus 1000 mL (1000 mL/hr), then 125 mL/hr for X1 (NOW); Nicolás (18:51 03/02/2017 EKoroleva P.A.-C) (Ack 18:52 IJurca R.N.) (19:05 IJurca R.N.) Dilaudid IV 1 mg (HIGH ALERT MEDICATION, NOW) (19:36 03/02/2017 EKoroleva P.A.-C) (19:49 CBradburn R.N.) Metronidazole IV 500 mg/100mL (NOW) (20:52 03/02/2017 EKoroleva P.A.-C) (Ack 21:12 RCollier R.N.) (21:24 RCollier R.N.) Dilaudid IV 1 mg (HIGH ALERT MEDICATION, NOW) (21:10 03/02/2017 EKoroleva P.A.-C) (Ack 21:12 RCollier R.N.) (21:24 RCollier R.N.) ORDER SHEET NOTES: [Electronically signed by Gay Haynes P.A.-C (21:39 03/02/2017)] [Electronically signed by Tiffany Syed R.N. (22:53 03/02/2017)] [Electronically locked/signed by Tiffany Syed R.N. (22:53 03/02/2017)]
--- NOTE | 2017-03-02 21:15 | ED CLINICAL REPORT ---
Clinical Report - Physicians/Mid Levels [facility] [address] [place] [address] 03/02/2017 18:36 Patient: PRICILA AYERS Time Seen: 19:04 Mar 02 2017. Arrived- By private vehicle. Historian- patient. HISTORY OF PRESENT ILLNESS Chief Complaint: ABDOMINAL PAIN. This started last night and is still present. It is described as "pain" and it is described as located in the right abdomen and right lower quadrant. The patient has had nausea. No vomiting. (patient reports over the last few days increase alcohol, drinking of up to 1/5 of hard alcohol daily, h/o similar, h/o pancreatitis. patient had a bowel movement yesterday. NO h/o ibs/ crohns. Denies prior h/o cancer, or h/o colonoscopy.). No recent travel. REVIEW OF SYSTEMS No constipation, black stools, difficulty with urination, pain with urination or fever. No headache, sore throat, chest pain, difficulty breathing or chills. All systems otherwise negative, except as recorded above. PAST HISTORY Problems: Cellulitis. Chronic back pain . Abscess. Abcess. Hyperlipidemia. Hypertension. Abdominal Pain. Peptic Ulcer Disease. Hernia. Bowel Obstruction. Gastritis. Hypokalemia. Alcohol Withdrawal. Immunizations. Pancreatitis. Additional Surgeries: Ankle surgery. Endoscopy. Knee Surgery. Medications: Omeprazole Oral 20 mg, daily. Amitriptyline HCl Oral 50 mg, at bedtime as needed. Lisinopril Oral 10 mg, daily. Metoprolol Succinate ER Oral 200 mg, 1/2 tablet twice a day. Percocet Oral 5/325 mg, 4x a day as needed, last dose 0630. Ranitidine HCl Oral 150 mg, 2x a day. Simvastatin Oral 40 mg, daily. Allergies: No Known Drug Allergy. SOCIAL HISTORY Current every day heavy tobacco smoker. Alcohol use. History of drug use: marijuana. ADDITIONAL NOTES The nursing notes have been reviewed. PHYSICAL EXAM Vital Signs: 03/02/2017 18:43 BP: 150/94. HR: 119. RR: 17. O2 saturation: 95%. Temp: 98.1 F. Appearance: Alert. ENT: Nose normal. Pharynx normal. Neck: Normal inspection. CVS: Tachycardia. Heart sounds normal. Respiratory: No respiratory distress. Breath sounds normal. Abdomen: Tenderness in the right side of the abdomen. Back: Normal inspection. Skin: Normal skin color. LABS, X-RAYS, AND EKG Abdominal CT: IMPRESSION: 1. 5.5 cm long segment of circumferential colonic inflammation of the ascending colon near the hepatic flexure in an area of diverticula. Differential diagnosis includes diverticulitis, infectious colitis, inflammatory neoplasm (less likely), however colonoscopy should be performed once the acute inflammation has subsided. 2. Tiny, stable left adrenal adenoma. 3. Chronic L1 compression fracture. 4. Discussed with [place] in the emergency room. All CT scans at this facility use dose modulation, iterative reconstruction, and/or weight-based dosing when appropriate to reduce radiation dose to as low as reasonably achievable. Electronically Final signed by:Lolita Irvin MD 03/02/2017 8:52:01 PM. Laboratory Tests: UA-Culture if indicated: (BYRON: 03/02/2017 19:06) ( MsgRcvd 03/02/2017 19:36) Final results Test Result Flag Units (Reference) URINE COLOR YELLOW URINE APPEARANCE CLEAR URINE GLUCOSE NEGATIVE (NEGATIVE) URINE BILIRUBIN NEGATIVE (NEGATIVE) URINE KETONE NEGATIVE (NEGATIVE) URINE SPECIFIC GRAVITY 1.015 (1.010-1.030) URINE PH 6.0 (5.0-8.0) URINE PROTEIN NEGATIVE (NEGATIVE) URINE UROBILINOGEN 0.2 EU/dL (0.2-1.0) URINE NITRITE NEGATIVE (NEGATIVE) URINE BLOOD NEGATIVE (NEGATIVE) URINE LEUK ESTERASE NEGATIVE (NEGATIVE) URINE RBC NONE SEEN rbc/hpf (0-1) URINE WBC RARE wbc/hpf (0-1) URINE EPITHELIAL CELLS RARE EPI/hpf (0-5) URINE BACTERIA NONE SEEN (NONE SEEN) URINE COMMENT CULT NOT INDICATED URINE CULTURES ARE SET-UP BASED ON THE FOLLOWING CRITERIA:POSITIVE NITRITEPOSITIVE LEUKOCYTE ESTERASEGREATER THAN 10 WHITE BLOOD CELLSMODERATE (2+) OR GREATER BACTERIA CBC w Diff: (BYRON: 03/02/2017 19:06) ( MsgRcvd 03/02/2017 19:28) Final results Test Result Flag Units (Reference) WHITE BLOOD COUNT 12.5 H K/uL (4.5-11.5) RED BLOOD COUNT 4.25 L M/uL (4.50-5.90) HEMOGLOBIN 14.8 gm/dL (13.5-17.5) HEMATOCRIT 43.2 % (41.0-53.0) MEAN CELL VOLUME 102 H fL (80-100) MEAN CORPUSCULAR HGB 35 H pg (26-34) MEAN CORPUSCULAR HGB CONC 34 g/dL (31-37) RED CELL DISTRIBUTION WIDTH 13.7 % (11.6-14.8) PLATELET COUNT 188 K/uL (150-400) NEUTROPHIL % 71.7 % (50-75) LYMPH % 19.9 L % (25-40) MONO % 7.3 % (3-14) EOSINOPHIL % 0.6 % (0-4) BASOPHIL % 0.5 % (0-2) Ethyl Alcohol: (BYRON: 03/02/2017 19:06) ( [facility] 03/02/2017 19:46) Final results Test Result Flag Units (Reference) ETHYL ALCOHOL 52 H mg/dL (3-10) CMP: (BYRON: 03/02/2017 19:06) ( [facility] 03/02/2017 19:37) Final results Test Result Flag Units (Reference) GLUCOSE 117 H mg/dL (70-110) BUN 9 mg/dL (7-18) CREATININE 0.7 mg/dL (0.6-1.3) Estimated GFR >60 mL/min Estimated GFR- >60 mL/min Note: Persistent reduction over 3 months in eGFR<60 mL/min/1.73 m2 defines CKD. Patients with eGFR values>=60 mL/min/1.73 m2 may also have CKD if evidence ofpersistent proteinuria. Additional information may be foundat www.kidney.org. SODIUM 137 mmol/L (136-145) POTASSIUM 3.7 mmol/L (3.5-5.1) CHLORIDE 101 mmol/L (98-107) CARBON DIOXIDE 24 mmol/L (21-32) CALCIUM 8.4 L mg/dL (8.5-10.1) TOTAL PROTEIN 7.3 g/dL (6.4-8.2) ALBUMIN 3.8 g/dL (3.3-5.0) BILIRUBIN, TOTAL 0.8 mg/dL (0.0-1.0) ALKALINE PHOSPHATASE 107 U/L (46-116) AST (SGOT) 33 U/L (15-37) ALT (SGPT) 46 U/L (12-78) LIPASE 419 H U/L (73-393) . PROGRESS AND PROCEDURES Course of Care: During the time in the ED, the following DDX were considered: acute surgical abdomen, hemodynamic or metabolic instability, dehydration, gastroenteritis-viral, food borne, or bacterial, food intolerance, irritable or inflammatory bowel, infection, sepsis. Patient reports right-sided abdominal pain, with signs of early colitis versus diverticulitis, with a 5 cm segment of his colon. Patient denies history of colonoscopy, discussed as this may be inflammatory cancer. Patient understands the need to follow up as well as colonoscopy and his near future. Patient is able to take by mouth. Afebrile. 03/02/2017 19:51 BP: 137/89. HR: 95. RR: 18. O2 saturation: 93%. Pain level now: 8/10. Patient is stable. Physical exam findings are improved. Symptoms better. Patient/family counseled. Disposition: Discharged. CLINICAL IMPRESSION Acute abdominal pain of unknown cause. Acute colitis. Acute diverticulitis. INSTRUCTIONS Drink plenty of fluids. No alcohol. (U have signs concerning for diverticulitis or possible inflammatory colitis, as mention in addition this may be early signs of inflammatory cancer. After your antibiotics and improvement in her symptoms, you need to follow up with your primary care provider, as well as having a colonoscopy scheduled in the near future. Address: [address] [place] [id number] ). Prescription Medications: Zofran (orally disintegrating tablets) 4 mg: take 1 orally every 6 hours for 3 days as needed for nausea. Dispense fifteen (15). No refill. Cipro 500 mg: take 1 tab orally every 12 hours for 14 days. No refills. Substitution is permissible. Hydrocodone/APAP 5mg / 325mg: take 1 orally every 6 hours as needed for pain. No refill. Metronidazole 500 mg: Take 1 tablet orally every 8 hours for 14 days. No refill Follow-up: Follow up with your doctor 2-3 days. (Electronically signed by Gay Haynes P.A.-C 03/02/2017 21:39)
--- NOTE | 2017-03-02 21:15 | ED ORDER SUMMARY ---
..... Patient: PRICILA AYERS OrderSheet [facility] VisitID: [id number] [place] [address] 56y, M Registration Date/Time: 03/02/2017 ORDER SHEET Weight: 99.7 kg (stated) Allergies: No Known Drug Allergy GENERAL ORDERS: CBC w Diff Urgent (18:51 03/02/2017 EKoroleva P.A.-C) (Ack 18:53 LNations ER Tech1) (19:04 IJurca R.N.) CMP Urgent (18:51 03/02/2017 EKoroleva P.A.-C) (Ack 18:53 LNations ER Tech1) (19:04 IJurca R.N.) UA-Culture if indicated Urgent (18:51 03/02/2017 EKoroleva P.A.-C) (Ack 18:53 LNations ER Tech1) (19:04 IJurca R.N.) Lipase Urgent (18:51 03/02/2017 EKoroleva P.A.-C) (Ack 18:53 LNations ER Tech1) (19:04 IJurca R.N.) Ethyl Alcohol Urgent (19:03 03/02/2017 EKoroleva P.A.-C) (19:04 IJurca R.N.) CT Abd/Pel w Cont (No) (N/A) Urgent (19:45 03/02/2017 EKoroleva P.A.-C) (Ack 19:49 Kacie) (20:33 Marley) MEDICATION ORDERS: Phenergan IV 12.5 mg (HIGH ALERT MEDICATION, NOW) (19:36 03/02/2017 EKoroleva P.A.-C) (19:49 CBradburn R.N.) Levaquin PO 750 mg (NOW) (20:51 03/02/2017 EKoroleva P.A.-C) (Ack 21:12 RCollier R.N.) (21:23 RCollier R.N.) Percocet PO 5/325 mg (HIGH ALERT MEDICATION, NOW) (22:30 03/02/2017 EKoroleva P.A.-C) (Ack 22:31 CBradburn R.N.) (22:49 CBradburn R.N.) IV FLUIDS: IV NS : initial bolus 1000 mL (1000 mL/hr), then 125 mL/hr for X1 (NOW); Nicolás (18:51 03/02/2017 EKoroleva P.A.-C) (Ack 18:52 IJurca R.N.) (19:05 IJurca R.N.) Dilaudid IV 1 mg (HIGH ALERT MEDICATION, NOW) (19:36 03/02/2017 EKoroleva P.A.-C) (19:49 CBradburn R.N.) Metronidazole IV 500 mg/100mL (NOW) (20:52 03/02/2017 EKoroleva P.A.-C) (Ack 21:12 RCollier R.N.) (21:24 RCollier R.N.) Dilaudid IV 1 mg (HIGH ALERT MEDICATION, NOW) (21:10 03/02/2017 EKoroleva P.A.-C) (Ack 21:12 RCollier R.N.) (21:24 RCollier R.N.) ORDER SHEET NOTES: [Electronically signed by Gay Haynes P.A.-C (21:39 03/02/2017)] [Electronically signed by Tiffany Syed R.N. (22:53 03/02/2017)] [Electronically locked/signed by Tiffany Syed R.N. (22:53 03/02/2017)]
--- NOTE | 2017-03-02 21:15 | ED NURSING NOTES ---
Clinical Report - Nurses [facility] [address] [place] [address] 03/02/2017 18:36 Patient: PRICILA AYERS TRIAGE Triage time 18:43. Acuity: LEVEL 3. Chief Complaint: ABDOMINAL PAIN. Alert. No acute distress. SUSAN COMA SCORE: [place] Coma Scale: 15- eyes open spontaneously (4); best verbal response- oriented x 4 (5); best motor response- obeys commands (6). --18:49 Manjeet Sage R.N. 18:43 03/02/17. BP: 150/94. HR: 119. RR: 17. O2 saturation: 95%. Temp: 98.1 F. Pain level now 9/10. --18:49 Manjeet Sage R.N. Weight: 99.7 kg stated. Height/Length: 72 inches Per Patient. BMI: 29.8. --18:42 Manjeet Sage R.N. Medications Amitriptyline HCl Oral 50 mg, at bedtime as needed. Lisinopril Oral 10 mg, daily. Metoprolol Succinate ER Oral 200 mg, 1/2 tablet twice a day. Percocet Oral 5/325 mg, 4x a day as needed, last dose 0630. Ranitidine HCl Oral 150 mg, 2x a day. Simvastatin Oral 40 mg, daily. --18:46 Manjeet Sage R.N. Omeprazole Oral 20 mg, daily. --18:46 Manjeet Sage R.N. Allergies No Known Drug Allergy. --18:46 Manjeet Sage R.N. Medication/allergy information source: the patient. --18:49 Manjeet Sage R.N. History Arrived by private vehicle. Historian: patient. This started last night. Describes the quality as sharp, burning and diffuse. Relates location as in the right flank area, right upper quadrant, right and left abdomen and right lower quadrant. Relates location as in the periumbilical area. ( Pt had BM today. Has been regular.). The patient has had nausea and abdominal pain. No vomiting or diarrhea. PAST MEDICAL HX: Peptic ulcer disease. Immunizations: up-to-date. SOCIAL HX: Heavy tobacco smoker- less than 1 pack per day. Regular alcohol use. History of occasional drug use: marijuana. No recent travel. No infectious disease exposure. No known contact with a sick individual. SELF HARM ASSESSMENT: A self harm assessment was performed. The patient answered "no" to the question "Do you have thoughts of harming or killing yourself?" and "Have you recently had thoughts about harming or killing others?". FALL RISK ASSESSMENT: Fall risk assessment completed. No fall risk identified. NUTRITIONAL RISK ASSESSMENT: The nutritional risk assessment revealed no deficiencies. FUNCTIONAL ASSESSMENT: Functional assessment: no impairments noted. LEARNING NEEDS ASSESSMENT: The learning needs assessment revealed no barriers. ABUSE ASSESSMENT: Abuse assessment: The patient was asked "Do you feel safe in your home?". SKIN INTEGRITY ASSESSMENT: Skin integrity risk assessment completed. No skin integrity risk identified. --18:49 Manjeet Sage R.N. PROBLEMS: Cellulitis. Chronic back pain . Abscess. Hyperlipidemia. Hypertension. Abdominal Pain. Peptic Ulcer Disease. Hernia. Bowel Obstruction. Hypokalemia. Pancreatitis. --18:47 Manjeet Sage R.N. Gastritis. --18:47 Manjeet Sage R.N. ADDITIONAL SURGERIES: Ankle surgery. Endoscopy. Knee Surgery. --18:47 Manjeet Sage R.N. Interventions ID band on patient. To treatment room. --18:49 Manjeet Sage R.N. PHYSICAL ASSESSMENT Ambulatory to room. ( Pt says pain is mostly on the right side, some R side guarding noted. Pt also mentions more mild pain on Left side of abdomen.). GENERAL / NEURO / PSYCH: Alert. Oriented X 4. Appears in pain. HEENT: Mucous membranes are pink. RESPIRATORY: Respirations not labored. CVS: Capillary refill less than 2 seconds. GI / : Abdomen soft. Abdominal tenderness in the right upper quadrant, right and left side of the abdomen and right lower quadrant. SKIN: Skin is warm and dry. --18:51 Manjeet Sage R.N. NURSING PROGRESS NOTES The plan of care for this patient has been created. Head of bed elevated. Reassurance given. Two patient identifiers checked. Call light placed in reach. Side rails up x 1. Bed placed in lowest position. Brakes of bed on. Patient ready for evaluation- chart flagged and ED physician notified. --18:52 Manjeet Sage R.N. 19:05 03/02/2017 Site #1 started via IV in the right antecubital space with an 20g angiocath, with aseptic technique and good blood return; one attempt. Blood drawn: rainbow set. Labeled in the presence of the patient and sent to the lab. Saline lock flushed with saline. --19:05 Manjeet Sage R.N. 19:05 03/02/2017 Started bag #1 1000 mL IV Fluids IV NS (Saline); bolus of 1000 mL over 1 hour(s) then at 125 mL/hr over 1 hour(s) via site #1 via IV pump. Allergies verified and confirmed 5 rights. IV patency established. IV site checked: no pain, redness, or swelling. IV flushed thoroughly pre- and post-medication administration. --19:05 Manjeet Sage R.N. Patient ID band checked for patient name and birthdate: patient confirmed. Instructions provided to collect clean catch urine and patient verbalized understanding. Clean catch urine collected with return of steph-colored clear urine; sample sent to lab. Specimen labeled in the presence of the patient. --19:13 Manjeet Sage R.N. Care transferred and report given (to Tiffany Lo RN). --19:18 Manjeet Sage R.N. 19:47 03/02/2017 PHENERGAN (Promethazine HCl) IVP 12.5 mg given over 2 minute(s) via site #1. Allergies verified and confirmed 5 rights. IV patency established. IV site checked: no pain, redness, or swelling. IV flushed thoroughly pre- and post-medication administration. IVP given by RN. --19:49 Tiffany Syed R.N. 19:49 03/02/2017 Dilaudid (HYDROmorphone HCl PF) IVP 1 mg given over 2 minute(s) via site #1. Allergies verified, confirmed 5 rights and sedative warning given to the patient. IV patency established. IV site checked: no pain, redness, or swelling. IV flushed thoroughly pre- and post-medication administration. IVP given by RN. --19:49 Tiffany Syed R.N. 19:51 03/02/17. BP: 137/89 (regular adult cuff) taken on the left arm, while lying. HR: 95. RR: 18. O2 saturation: 93%. Temp: deferred. Pain level now: 03/26. --19:53 Tiffany Syed R.N. Overall patient status is the same- he states feels the same. ( medicated pt per orders, will continue to monitor). GI / : The patient reports abdominal pain located in the RUQ and LUQ that is severe, is constant, is described as sharp and aching and is associated with nausea. Bowel sounds within normal limits. --19:53 Tiffany Syed R.N. 21:18 03/02/2017 Dilaudid (HYDROmorphone HCl PF) IVP 1 mg given over 30 second(s) via site #1. Allergies verified, confirmed 5 rights and sedative warning given to the patient. IV patency established. IV site checked: no pain, redness, or swelling. IV flushed thoroughly pre- and post-medication administration. IVP given by RN. --21:24 Jackelyn Joshi R.N. 21:19 03/02/2017 Started 500 mg of Metronidazole IVPB in bag #1 100 mL; at 100 mL/hr over 1 hour(s) via site #1 via IV pump. Allergies verified and confirmed 5 rights. IV patency established. IV site checked: no pain, redness, or swelling. IV flushed thoroughly pre- and post-medication administration. --21:24 Jackelyn Joshi R.N. 21:03/02/2017 Levaquin (Levofloxacin) PO Tablets 750 mg given. Allergies verified and confirmed 5 rights. --21:23 Jackelyn Joshi R.N. 21:17 03/02/17. BP: 137/91. HR: 86. RR: 16 (regular and unlabored). O2 saturation: 96% on room air. Pain level now: 04/26. --21:27 Jackelyn Joshi R.N. 21:05 03/02/2017 IV Fluids IV NS Discontinued: bag #1 completed. Total amount infused: 1000 mL. IV patency established. IV site checked: no pain, redness, or swelling. IV flushed thoroughly. --22:28 Jackelyn Joshi R.N. 22:28 03/02/2017 Metronidazole IVPB Discontinued: bag #1 completed. Total amount infused: 100 mL. IV patency established. IV site checked: no pain, redness, or swelling. IV flushed thoroughly. --22:28 Jackelyn Joshi R.N. 22:30 03/02/2017 Site #1 removed upon discharge. Catheter intact. Manual pressure and bandage applied. --22:50 Tiffany Syed R.N. 22:35 03/02/2017 Percocet (Oxycodone-Acetaminophen) PO 5/325 mg Tablets 1 tab given. Allergies verified, confirmed 5 rights and sedative warning given to the patient. --22:49 Tiffany Syed R.N. DISPOSITION / DISCHARGE Departure time: 2240. Condition at departure: improved and stable. No learning barriers present. Discharge instructions provided and reviewed with the patient. Reviewed medication(s) side effects, precautions, dosing and course information. Prescription(s) given to the patient. Reviewed referral to a primary care physician (pt primary care). Patient verbalized understanding. Written instructions provided in Amharic. The patient was discharged home and accompanied by friend. He left the Emergency Department ambulatory and via private vehicle. Driving (friend). --22:53 Tiffany Syed R.N. 22:40 03/02/17. BP: 133/86 taken on the left arm, while lying. HR: 94 (regular and normal rate). RR: 18 (regular and unlabored). O2 saturation: 96% on room air. Temp: deferred. Pain level now: 11/24. --22:53 Tiffany Syed R.N. Locked/Released at 03/02/2017 22:53 by Tiffany Syed R.N.
--- NOTE | 2017-03-02 22:55 | ED DISCHARGE INSTRUCTIONS ---
Patient: PRICILA AYERS General Instructions [facility] VisitID: [id number] [place] [address] 56y, M Registration Date/Time: 03/02/2017 Acute abdominal pain of unknown cause. Acute colitis. Acute diverticulitis. INSTRUCTIONS Drink plenty of fluids. No alcohol. (U have signs concerning for diverticulitis or possible inflammatory colitis, as mention in addition this may be early signs of inflammatory cancer. After your antibiotics and improvement in her symptoms, you need to follow up with your primary care provider, as well as having a colonoscopy scheduled in the near future. Address: [address] [place] [address] ). Prescription Medications: Zofran (orally disintegrating tablets) 4 mg: take 1 orally every 6 hours for 3 days as needed for nausea. Dispense fifteen (15). No refill. Cipro 500 mg: take 1 tab orally every 12 hours for 14 days. No refills. Substitution is permissible. Hydrocodone/APAP 5mg / 325mg: take 1 orally every 6 hours as needed for pain. No refill. Metronidazole 500 mg: Take 1 tablet orally every 8 hours for 14 days. No refill Follow-up: Follow up with your doctor 2-3 days. ADDITIONAL INFORMATION Abdominal Pain, Unknown Cause (Female) The exact cause of your abdominal (stomach) pain is not certain. This does not mean that this is something to worry about, or the right tests were not done. Everyone likes to know the exact cause of the problem, but sometimes with abdominal pain, there is no clear-cut cause, and this could be a good thing. The good news is that your symptoms can be treated, and you will feel better. Your condition does not seem serious now; however, sometimes the signs of a serious problem may take more time to appear. For this reason,it is important for you to watch for any new symptoms, problems,or worsening of your condition. Over the next few days, the abdominal pain may come and go, or be continuous. Other common symptoms can include nausea and vomiting. Sometimes it can be difficult to tell if you feel nauseous, you may just feel bad and not associate that feeling with nausea. Constipation, diarrhea, and a fever may go along with the pain. The pain may continue even if treated correctly over the following days. Depending on how things go, sometimes the cause can become clear and may require further or different treatment. Additional evaluations, medications, or tests may be needed. Home care Your health care provider may prescribe medications for pain, symptoms, or an infection. Follow the health care provider's instructions for taking these medications. General care Rest until your next exam. No strenuous activities. Try to find positions that ease discomfort. A small pillow placed on the abdomen may help relieve pain. Something warm on your abdomen (such as a heating pad) may help, but be careful not to burn yourself. Diet Do not force yourself to eat, especially if having cramps, vomiting, or diarrhea. Water is important so you do not get dehydrated. Soup may also be good. Sports drinks may also help, especially if they are not too acidic. Make sure you don't drink sugary drinks as this can make things worse. Take liquids in small amounts. Do not guzzle them. Caffeine sometimes makes the pain and cramping worse. Avoid dairy products if you have vomiting or diarrhea. Don't eat large amounts at a time. Wait a few minutes between bites. Eat a diet low in fiber (called a low-residue diet). Foods allowed include refined breads, white rice, fruit and vegetable juices without pulp, tender meats. These foods will pass more easily through the intestine. Avoid whole-grain foods, whole fruits and vegetables, meats, seeds and nuts, fried or fatty foods, dairy, alcohol and spicy foods until your symptoms go away. Follow-up care Follow up with your health care provider as instructed, or if your pain does not begin to improve in the next 24 hours. When to seek medical care Seek prompt medical care if any of the following occur: Pain gets worse or moves to the right lower abdomen New or worsening vomiting or diarrhea Swelling of the abdomen Unable to pass stool for more than three days Fever of 100.4F (38C) or higher, or as directed by your healthcare provider. Blood in vomit or bowel movements (dark red or black color) Jaundice (yellow color of eyes and skin) Weakness, dizziness Chest, arm, back, neck or jaw pain Unexpected vaginal bleeding or missed period Call 911 Call emergency services if any of the following occur: Trouble breathing Confusion Fainting or loss of consciousness Rapid heart rate Seizure Diverticulitis Some people develop pouches along the wall of the colon as they get older. The pouches,called diverticuli, usually cause no symptoms. If the pouches become blocked, an infection may occur known as diverticulitis. This causes lower abdominal pain and fever. If not treated, it can become a serious condition, causing an abscess to form inside the pouch. The abscess may block the instestinal tract even or rupture, spreading infection throughout the abdomen. When treatment is started early, oral antibiotics alone may be enough to cure diverticulitis. This method is tried first. However, if you do not improve or if your condition worsens while you are trying oral antibiotics, it will be necessary to admit you to the hospital for IV antibiotics. Severe cases may require surgery. Home care The following guidelines will help you care for your diverticulitis at home: During the acute illness, rest and follow a low-fiber diet: Foods to Include: flake cereal, mashed potatoes, pancakes, waffles, pasta, white bread, rice, applesauce, bananas, eggs, meat, fish, poultry, tofu, cooked vegetables. Take antibiotics exactly as directed. Do not miss any doses or stop taking the medication, even if you feel better. Monitor your temperature and report any rising temperature to your doctor. Preventing future attacks Once you have had an episode of diverticulitis, you are at risk of having a recurrence. After you have recovered from this episode, you may be able to reduce your risk by eating a high-fiber diet (2035 gm/day of fiber). This cleans out the colon pouches that already exist and prevent new ones from forming. Foods high in fiber includes fresh fruits and edible peelings, raw or lightly cooked vegetables, whole grain cereals and breads, dried beans and peas, bran. Follow-up care Follow up with your doctor as advised or sooner if you are not improving in the nexttwo days. When to seek medical care Get prompt medical attention if any of the following occur: Fever of 100.4F (38C) or higher, or as directed by your health care provider Repeated vomiting or swelling of the abdomen Weakness, dizziness, light-headedness Increasing abdominal pain that becomes severe or spreads to your back Pain that moves to the right lower abdomen Rectal bleeding (red, black or maroon color of the stools) Unexpected vaginal bleeding [place] Diet A bland diet is used for patients with an upset stomach. It consists of foods that are mild and easy to digest. It is better to eat small frequent meals rather than three large meals a day. BEVERAGES OK: Fruit juices, non-caffeinated teas and coffee, non-carbonated [place] AVOID: Carbonated beverage, caffeinated tea and coffee, all alcoholic beverages BREAD OK: Refined white, wheat or rye bread, chikis or soda crackers, [place] toast, plain rolls, bagels AVOID: Whole-grain bread CEREAL OK: Refined cereals: cooked or ready to eat AVOID: Whole grain cereals and granola, or those containing bran, seeds or nuts DESSERTS OK: Peanut butter and all others except those to "avoid" AVOID: Chocolate, cocoa, coconut, popcorn, nuts, seeds, jam, marmalade FRUITS OK: Canned, cooked, frozen or fresh fruits without seeds or tough skin AVOID: Olives, skin and seeds of fruit MEATS OK: All fresh or preserved meat, fish and fowl AVOID: Any that are prepared with those spices to "avoid" CHEESE & EGGS OK: Eggs, cottage cheese, cream cheese, other cheeses AVOID: All cheeses made with those spices to "avoid" POTATOES & PASTA OK: Potato, rice, macaroni, noodles, spaghetti AVOID: None SOUPS OK: All soups without heavy seasoning AVOID: Soups made with those spices to "avoid" VEGETABLES OK: Canned, cooked, fresh or frozen mildly flavored vegetables without seeds, skins or coarse fiber AVOID: Vegetables prepared with those spices to "avoid"; skin and seeds of vegetables and those with coarse fiber SPICES OK: Salt, lemon and [place] juice, vinegar, all extracts, tanesha, cinnamon, thyme, mace, allspice, paprika AVOID: [place] powder, cloves, pepper, seed spices, garlic, gravy pickles, highly seasoned salad dressings Clear Liquid Diet Clear liquids are any liquid that you can see through as well as those that are very easy to digest. This is used while the body is recovering from irritation or infection of the stomach or intestinal tract. It may also be used before special procedures or surgery. This diet is to be used no more than three days. You may include the following items. Adults Adults should drink a total of 23 quarts of liquid per day. It may be easier to drink small frequent servings rather than a few large ones. Liquids can include: Fruit juices.Strained orange juice or lemonade (no pulp), apple, grape and cranberry juice, clear fruit drinks, sports drinks Beverages.Sport drinks, sodas, mineral water (plain or flavored), tea, black coffee, liquid gelatin (add twice the recommended amount of water) Soups.Clear broth, consomm, bouillon Desserts.Plain gelatin, popsicles, fruit juice bars Children Over 2 years old The following liquids are acceptable for children over age 2: Fruit juices.Strained orange juice or lemonade (no pulp), apple, grape and cranberry juice, clear fruit drinks Beverages. Sports drinks, sodas, mineral water (plain or flavored), tea, liquid gelatin (add twice the recommended amount of water) Soups. Clear broth, consomm, bouillon Desserts. Plain gelatin, popsicles, fruit juice bars Children under 2 years old Oral rehydration fluids such are available at drug stores and most grocery stores without a prescription. Ciprofloxacin Hydrochloride Oral tablet What is this medicine? CIPROFLOXACIN (sip gagandeep FLOX a sin) is a quinolone antibiotic. It is used to treat certain kinds of bacterial infections. It will not work for colds, flu, or other viral infections. How should I use this medicine? Take this medicine by mouth with a glass of water. Follow the directions on the prescription label. Take your medicine at regular intervals. Do not take your medicine more often than directed. Take all of your medicine as directed even if you think your are better. Do not skip doses or stop your medicine early. You can take this medicine with food or on an empty stomach. It can be taken with a meal that contains dairy or calcium, but do not take it alone with a dairy product, like milk or yogurt or calcium-fortified juice. A special MedGuide will be given to you by the pharmacist with each prescription and refill. Be sure to read this information carefully each time. Talk to your graphic design assistant regarding the use of this medicine in children. Special care may be needed. What side effects may I notice from receiving this medicine? Side effects that you should report to your doctor or health day care aide as soon as possible: - allergic reactions like skin rash, itching or hives, swelling of the face, lips, or tongue - breathing problems - confusion, nightmares or hallucinations - feeling faint or lightheaded, falls - irregular heartbeat - joint, muscle or tendon pain or swelling - pain or trouble passing urine -persistent headache with or without blurred vision - redness, blistering, peeling or loosening of the skin, including inside the mouth - seizure - unusual pain, numbness, tingling, or weakness Side effects that usually do not require medical attention (report to your doctor or health day care aide if they continue or are bothersome): - diarrhea - nausea or stomach upset - white patches or sores in the mouth What may interact with this medicine? Do not take this medicine with any of the following medications: cisapride droperidol terfenadine tizanidine This medicine may also interact with the following medications: antacids caffeine cyclosporin didanosine (ddI) buffered tablets or powder medicines for diabetes medicines for inflammation like ibuprofen, naproxen methotrexate multivitamins omeprazole phenytoin probenecid sucralfate theophylline warfarin What if I miss a dose? If you miss a dose, take it as soon as you can. If it is almost time for your next dose, take only that dose. Do not take double or extra doses. Where should I keep my medicine? Keep out of the reach of children. Store at room temperature below 30 degrees C (86 degrees F). Keep container tightly closed. Throw away any unused medicine after the expiration date. What should I tell my health care provider before I take this medicine? They need to know if you have any of these conditions: -bone problems -cerebral disease -joint problems -irregular heartbeat -kidney disease -liver disease -myasthenia gravis -seizure disorder -tendon problems -an unusual or allergic reaction to ciprofloxacin, other antibiotics or medicines, foods, dyes, or preservatives - or trying to get -breast-feeding What should I watch for while using this medicine? Tell your doctor or health day care aide if your symptoms do not improve. Do not treat diarrhea with over the counter products. Contact your doctor if you have diarrhea that lasts more than 2 days or if it is severe and watery. You may get drowsy or dizzy. Do not drive, use machinery, or do anything that needs mental alertness until you know how this medicine affects you. Do not stand or sit up quickly, especially if you are an older patient. This reduces the risk of dizzy or fainting spells. This medicine can make you more sensitive to the sun. Keep out of the sun. If you cannot avoid being in the sun, wear protective clothing and use sunscreen. Do not use sun lamps or tanning beds/booths. Avoid antacids, aluminum, calcium, iron, magnesium, and zinc products for 6 hours before and 2 hours after taking a dose of this medicine. Metronidazole Oral tablet What is this medicine? METRONIDAZOLE (me troe NI da zole) is an antiinfective. It is used to treat certain kinds of bacterial and protozoal infections. It will not work for colds, flu, or other viral infections. How should I use this medicine? Take this medicine by mouth with a full glass of water. Follow the directions on the prescription label. Take your medicine at regular intervals. Do not take your medicine more often than directed. Take all of your medicine as directed even if you think you are better. Do not skip doses or stop your medicine early. Talk to your graphic design assistant regarding the use of this medicine in children. Special care may be needed. What side effects may I notice from receiving this medicine? Side effects that you should report to your doctor or health day care aide as soon as possible: allergic reactions like skin rash or hives, swelling of the face, lips, or tongue confusion, clumsiness difficulty speaking discolored or sore mouth dizziness fever, infection numbness, tingling, pain or weakness in the hands or feet trouble passing urine or change in the amount of urine redness, blistering, peeling or loosening of the skin, including inside the mouth seizures unusually weak or tired vaginal irritation, dryness, or discharge Side effects that usually do not require medical attention (report to your doctor or health day care aide if they continue or are bothersome): diarrhea headache irritability metallic taste nausea stomach pain or cramps trouble sleeping What may interact with this medicine? Do not take this medicine with any of the following medications: alcohol or any product that contains alcohol amprenavir oral solution cisapride disulfiram dofetilide dronedarone paclitaxel injection pimozide ritonavir oral solution sertraline oral solution sulfamethoxazole-trimethoprim injection thioridazine ziprasidone This medicine may also interact with the following medications: cimetidine lithium other medicines that prolong the QT interval (cause an abnormal heart rhythm) phenobarbital phenytoin warfarin What if I miss a dose? If you miss a dose, take it as soon as you can. If it is almost time for your next dose, take only that dose. Do not take double or extra doses. Where should I keep my medicine? Keep out of the reach of children. Store at room temperature below 25 degrees C (77 degrees F). Protect from light. Keep container tightly closed. Throw away any unused medicine after the expiration date. What should I tell my health care provider before I take this medicine? They need to know if you have any of these conditions: anemia or other blood disorders disease of the nervous system fungal or yeast infection if you drink alcohol containing drinks liver disease seizures an unusual or allergic reaction to metronidazole, or other medicines, foods, dyes, or preservatives or trying to get breast-feeding What should I watch for while using this medicine? Tell your doctor or health day care aide if your symptoms do not improve or if they get worse. You may get drowsy or dizzy. Do not drive, use machinery, or do anything that needs mental alertness until you know how this medicine affects you. Do not stand or sit up quickly, especially if you are an older patient. This reduces the risk of dizzy or fainting spells. Avoid alcoholic drinks while you are taking this medicine and for three days afterward. Alcohol may make you feel dizzy, sick, or flushed. If you are being treated for a sexually transmitted disease, avoid sexual contact until you have finished your treatment. Your sexual partner may also need treatment. You have been given the following additional information: Abdominal Pain, Unknown Cause, (Female) Diverticulitis Diet, [place] (Adult) Diet, Clear Liquid Ciprofloxacin Hydrochloride Oral tablet Metronidazole Oral tablet (Electronically signed by Gay Haynes P.A.-C 03/02/2017 21:39)
--- NOTE | 2017-03-02 22:56 | ED MED RECONCILIATION SUMMARY ---
Patient: PRICILA AYERS Medication Reconciliation Report [facility] VisitID: [id number] [address] [place] [address] 56y, M Registration Date/Time: 03/02/2017 Weight: 99.7 kg Height/Length: 72 in. BMI: 29.8 ALLERGIES: No Known Drug Allergy The patient's Home Medications are listed below: THE FOLLOWING MEDICATIONS NEED TO BE RECONCILED: Amitriptyline HCl Oral 50 mg, at bedtime Lisinopril Oral 10 mg, daily Metoprolol Succinate ER Oral 200 mg, 1/2 tablet twice a day Omeprazole Oral 20 mg, daily Percocet Oral 5/325 mg, 4x a day, last dose: 629 Ranitidine HCl Oral 150 mg, 2x a day Simvastatin Oral 40 mg, daily The source(s) of the original Home Medication information: patient The following Medications were given to the patient in the Emergency Department: IV NS IV Fluids bolus 1000 mL over 1 hour(s), then 125 mL/hr, administered: 03/02/2017 7:05:00 PM Dilaudid [IVP] IVP 1 mg, administered: 03/02/2017 7:49:00 PM PHENERGAN [IVP] IVP 12.5 mg, administered: 03/02/2017 7:47:00 PM Levaquin [PO] PO 750 mg, administered: 03/02/2017 9:21:00 PM Metronidazole [IVPB] IVPB bolus 0, then 500 mg 100 mL/hr, administered: 03/02/2017 9:19:00 PM Dilaudid [IVP] IVP 1 mg, administered: 03/02/2017 9:18:00 PM Percocet [PO] PO 1 tab, administered: 03/02/2017 10:35:00 PM The following Medications were prescribed to the patient: Zofran (orally disintegrating tablets) 4 mg: take 1 orally every 6 hours for 3 days as needed for nausea. Dispense fifteen (15). No refill. -- Gay Haynes, P.A.-C Cipro 500 mg: take 1 tab orally every 12 hours for 14 days. No refills. Substitution is permissible. -- Gay Haynes, P.A.-C Hydrocodone/APAP 5mg / 325mg: take 1 orally every 6 hours as needed for pain. No refill. -- Gay Haynes P.A.-C Metronidazole 500 mg: Take 1 tablet orally every 8 hours for 14 days. No refill -- Gay Haynes P.A.-C
--- NOTE | 2017-03-02 22:56 | ED MED RECONCILIATION SUMMARY ---
Patient: PRICILA AYERS Medication Reconciliation Report [facility] VisitID: [id number] [address] [place] [address] 56y, M Registration Date/Time: 03/02/2017 Weight: 99.7 kg Height/Length: 72 in. BMI: 29.8 ALLERGIES: No Known Drug Allergy The patient's Home Medications are listed below: THE FOLLOWING MEDICATIONS NEED TO BE RECONCILED: Amitriptyline HCl Oral 50 mg, at bedtime Lisinopril Oral 10 mg, daily Metoprolol Succinate ER Oral 200 mg, 1/2 tablet twice a day Omeprazole Oral 20 mg, daily Percocet Oral 5/325 mg, 4x a day, last dose: 629 Ranitidine HCl Oral 150 mg, 2x a day Simvastatin Oral 40 mg, daily The source(s) of the original Home Medication information: patient The following Medications were given to the patient in the Emergency Department: IV NS IV Fluids bolus 1000 mL over 1 hour(s), then 125 mL/hr, administered: 03/02/2017 7:05:00 PM Dilaudid [IVP] IVP 1 mg, administered: 03/02/2017 7:49:00 PM PHENERGAN [IVP] IVP 12.5 mg, administered: 03/02/2017 7:47:00 PM Levaquin [PO] PO 750 mg, administered: 03/02/2017 9:21:00 PM Metronidazole [IVPB] IVPB bolus 0, then 500 mg 100 mL/hr, administered: 03/02/2017 9:19:00 PM Dilaudid [IVP] IVP 1 mg, administered: 03/02/2017 9:18:00 PM Percocet [PO] PO 1 tab, administered: 03/02/2017 10:35:00 PM The following Medications were prescribed to the patient: Zofran (orally disintegrating tablets) 4 mg: take 1 orally every 6 hours for 3 days as needed for nausea. Dispense fifteen (15). No refill. -- Gay Haynes, P.A.-C Cipro 500 mg: take 1 tab orally every 12 hours for 14 days. No refills. Substitution is permissible. -- Gay Haynes, P.A.-C Hydrocodone/APAP 5mg / 325mg: take 1 orally every 6 hours as needed for pain. No refill. -- Gay Haynes P.A.-C Metronidazole 500 mg: Take 1 tablet orally every 8 hours for 14 days. No refill -- Gay Haynes P.A.-C
--- NOTE | 2017-03-02 22:56 | ED MAR SUMMARY ---
..... Medication Administration Record [facility] [address] [place] [address] Patient: PRICILA AYERS Visit ID: [id number] 56y, M Weight: 99.7 kg Height/Length: 72 in BMI: 29.8 ALLERGIES: No Known Drug Allergy Start 19:05 03/02/2017 Manjeet Sage R.N., Stop 21:03/02/2017 Jackelyn Joshi R.N. Medication Administered: IV NS (SALINE), Dose: IV Fluids over 1 hour(s), Rate: 125 mL/hr, Bolus: 1000 mL over 1 hour(s), Dispensed: 1000 mL bag, Site: #1 right AC. Medication Ordered: IV NS : initial bolus 1000 mL (1000 mL/hr), then 125 mL/hr for X1 (NOW); Nicolás. Given 19:47 03/02/2017 Tiffany Syed R.N. Medication Administered: PHENERGAN [IVP] (PROMETHAZINE HCL), Dose: 12.5 mg IVP over 2 minute(s), Site: #1 right AC. Medication Ordered: Phenergan IV 12.5 mg (HIGH ALERT MEDICATION, NOW). Given 19:49 03/02/2017 Tiffany Syed R.N. Medication Administered: DILAUDID [IVP] (HYDROMORPHONE HCL PF), Dose: 1 mg IVP over 2 minute(s), Site: #1 right AC. Medication Ordered: Dilaudid IV 1 mg (HIGH ALERT MEDICATION, NOW). Given 21:18 03/02/2017 Jackelyn Joshi R.N. Medication Administered: DILAUDID [IVP] (HYDROMORPHONE HCL PF), Dose: 1 mg IVP over 30 second(s), Site: #1 right AC. Medication Ordered: Dilaudid IV 1 mg (HIGH ALERT MEDICATION, NOW). Start 21:03/02/2017 Jackelyn Joshi R.N., Stop 22:28 03/02/2017 Jackelyn Joshi R.N. Medication Administered: METRONIDAZOLE [IVPB], Dose: 500 mg IVPB over 1 hour(s), Rate: 100 mL/hr, Dispensed: 100 mL bag, Site: #1 right AC. Medication Ordered: Metronidazole IV 500 mg/100mL (NOW). Given 21:21 03/02/2017 Jackelyn Joshi RSarmadN. Medication Administered: LEVAQUIN [PO] (LEVOFLOXACIN), Dose: 750 mg Tablets PO. Medication Ordered: Levaquin PO 750 mg (NOW). Given 22:35 03/02/2017 Tiffany Syed RSarmadN. Medication Administered: PERCOCET [PO] (OXYCODONE-ACETAMINOPHEN), Dose: 1 tab 5/325 mg Tablets PO. Medication Ordered: Percocet PO 5/325 mg (HIGH ALERT MEDICATION, NOW).
--- NOTE | 2017-03-02 22:56 | ED MAR SUMMARY ---
..... Medication Administration Record [facility] [address] [place] [address] Patient: PRICILA AYERS Visit ID: [id number], M Weight: 99.7 kg Height/Length: 72 in BMI: 29.8 ALLERGIES: No Known Drug Allergy Start 19:05 03/02/2017 Manjeet Sage R.N., Stop 21:03/02/2017 Jackelyn Joshi R.N. Medication Administered: IV NS (SALINE), Dose: IV Fluids over 1 hour(s), Rate: 125 mL/hr, Bolus: 1000 mL over 1 hour(s), Dispensed: 1000 mL bag, Site: #1 right AC. Medication Ordered: IV NS : initial bolus 1000 mL (1000 mL/hr), then 125 mL/hr for X1 (NOW); [place]. Given 19:47 03/02/2017 Tiffany Syed R.N. Medication Administered: PHENERGAN [IVP] (PROMETHAZINE HCL), Dose: 12.5 mg IVP over 2 minute(s), Site: #1 right AC. Medication Ordered: Phenergan IV 12.5 mg (HIGH ALERT MEDICATION, NOW). Given 19:49 03/02/2017 Tiffany Syed R.N. Medication Administered: DILAUDID [IVP] (HYDROMORPHONE HCL PF), Dose: 1 mg IVP over 2 minute(s), Site: #1 right AC. Medication Ordered: Dilaudid IV 1 mg (HIGH ALERT MEDICATION, NOW). Given 21:18 03/02/2017 Jackelyn Joshi R.N. Medication Administered: DILAUDID [IVP] (HYDROMORPHONE HCL PF), Dose: 1 mg IVP over 30 second(s), Site: #1 right AC. Medication Ordered: Dilaudid IV 1 mg (HIGH ALERT MEDICATION, NOW). Start 21:03/02/2017 Jackelyn Joshi R.N., Stop 22:28 03/02/2017 Jackelyn Joshi R.N. Medication Administered: METRONIDAZOLE [IVPB], Dose: 500 mg IVPB over 1 hour(s), Rate: 100 mL/hr, Dispensed: 100 mL bag, Site: #1 right AC. Medication Ordered: Metronidazole IV 500 mg/100mL (NOW). Given 21:21 03/02/2017 Jackelyn Joshi RSarmadN. Medication Administered: LEVAQUIN [PO] (LEVOFLOXACIN), Dose: 750 mg Tablets PO. Medication Ordered: Levaquin PO 750 mg (NOW). Given 22:35 03/02/2017 Tiffany Syed RSarmadN. Medication Administered: PERCOCET [PO] (OXYCODONE-ACETAMINOPHEN), Dose: 1 tab 5/325 mg Tablets PO. Medication Ordered: Percocet PO 5/325 mg (HIGH ALERT MEDICATION, NOW).
== END 2017-03-02 22:41 | disposition home or self-care (01) ==
LOC: ED SRH 18:37
DX: K57.92 Diverticulitis of intestine, part unspecified, without perforation or abscess without bleeding (principal); K52.9 Noninfective gastroenteritis and colitis, unspecified; R10.31 Right lower quadrant pain; E78.5 Hyperlipidemia, unspecified; I10 Essential (primary) hypertension; Z79.899 Other long term (current) drug therapy; F17.210 Nicotine dependence, cigarettes, uncomplicated
CPT/HCPCS: 90004; 90100; 92010; 92235; 95059